=== PATIENT | male | born 1995 | race Caucasian/White ===

== ENCOUNTER 2025-01-14 02:54 | Observation (INO) | payer SELFPAY ==
[2025-01-14] VITALS (29 sets, daily range): BP systolic 111–153; BP diastolic 52–93; PULSE 55–107; RESP 12–22; TEMP 36.6–36.9; O2SAT 96–100; BMI 20.6
--- NOTE | 2025-01-14 02:59 | ECG_ITS ---
Test Date: 2025-01-14 02:56:00 Measurements Intervals [place] Rate: 96 P: 71 [place]: 113 QRS: -10 QRSD: 117 T: 55 QT: 277 QTc: 352 Interpretive Statements SINUS RHYTHM WITH SHORT [place] INTERVAL POSSIBLE LEFT ATRIAL ENLARGEMENT INCOMPLETE RIGHT BUNDLE BRANCH BLOCK BORDERLINE ECG No previous ECG available for comparison Electronically Signed On 01-14-2025 06:14:56 CDT by Swapnil Flowers D.O.
--- OUTSIDE RECORDS SUMMARY | 2025-01-14 03:16 | XMS_ITS | Clinical Summary ---
Author Organization [facility] Address [address] [place] [id number] Care Team Providers Care Picker/Puller Name Role Phone Unavailable Primary Care Provider Unavailabl e Social History Tobacco Use Types Packs/Day Years Used Date Smoking Tobacco: Never Assessed Sex and Gender Information Value Date Recorded Sex Assigned at Not on file Legal Sex Male 4:47 PM CDT Gender Identity Not on file Sexual Orientation Not on file Plan of Treatment Health Maintenance Due Date Last Done Comments Annual Physical 1997 Hepatitis C 2012 DTaP, Tdap and Td Vaccines ( 1 - Tdap) 2013 Hepatitis B Vaccines (1 of 3 - 19+ 3-dose series) 2013 HPV Vaccines (1 - 3-dose SCD M series) 2021 COVID-19 Vaccine ( - 2023-2 5 season) 2024 Influenza Adult (#1) 2025 Meningococcal B Vaccine Aged Out No l onger eligible based on patient's age to complete this topic Meningococcal Vaccine Aged Out No jackson nadya eligible based on patient's age to complete this topic Pneumococcal Vaccine: Pediat rics (0 to 5 Years) and At-Risk Patients (6 to 49 Years) Aged Out No longer eligible b ased on patient's age to complete this topic RSV Immunizations Under 20 Months Aged Out No longer eligible based on patient's age to complete this topic
--- OUTSIDE RECORDS SUMMARY | 2025-01-14 03:16 | XMS_ITS | Clinical Summary ---
Author Organization [facility] [address] [place] [id number] Care Team Providers Care Drum Saw Operator Name Role Phone Art Rothman Primary Care Provider Allergies Active Allergy Reactions Criticality Noted Date Comments Butorphanol Tartrate Other (See comments),Unknown Low 02/09/2012 REVERSE REACTION- DOES NOT KNOCK HIM OUT Medications No known medications Active Problems Problem Noted Date Diagnosed Date COVID-19 03/27/2020 Essential hypertension 03/29/2019 Nonintractable episodic headache 03/29/2019 Coarctation of aorta 03/30/2018 Assessment & Plan (03/30/2018 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 He continues to do well and is asymptomatic with a fairly high level of physical activity. He is normotensive today without any medications, though reports systolic blood pressures in the 140's on the left and 140-160's on the right. In this context we will get baseline labs and start lisinopril 2.5 mg daily with plan for patient to keep BP log and follow up over the phone for further titration. He does not require SBE prophylaxis for dental work. There are no restrictions to his activities. We will perform an MRA chest with his return visit in one year, which was ordered today. 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 History of bicuspid aortic v alve - (Added by ELO Conv) Family History Medical History Relation Name Comments Hypertension Father Family history of hypertension - (Added by ELO Conv) Hypertension Mother Family history of hypertension - (Added by ELO Conv) Relation Name Status Comments Father Mother Social History Tobacco Use Types Packs/Day Years Used Date Smoking Tobacco: Never Smokeless Tobacco: Current Sex and Gender Information Value Date Recorded Sex Assigned at Not on file Legal Sex Male 11:44 PM SALESFORCE ADMINISTRATOR Gender Identity Not on file Sexual Orientation Not on file Obstetrics History Last Filed Vital Signs Vital Sign Reading Time Taken Comments Blood Pressure 120/78 2023 9:32 AM CDT Pulse 75 2023 9:32 AM CDT Temperature 37.1 C (98.7 F) 03/27/2020 10:18 AM SALESFORCE ADMINISTRATOR Respiratory Rate - - Oxygen Saturation 99% 2023 9:32 AM CDT Inhaled Oxygen Concentration - - Weight 65.4 kg (144 lb 1.9 oz) 2023 9:32 A M CDT Height 175.3 cm (5' 9) 2023 9:32 AM CDT Body Mass Index 21.28 2023 9:32 AM CDT Plan of Treatment Health Maintenance Due Date Last Done Comments Depression Screening 1994 Hepatitis C Screening 1994 DTaP/Tdap/Td Vaccine (2 - Tdap) 2005 10/26/2004 Varicella Vaccines (1 of 2 - 13+ 2-dose series) 11/18/2007 Regular Well Visit/Exam 18-64 2012 HPV Vaccines (1 - 3-dose SCD M series) 2021 Influenza Vaccine (#1) 2024 9, 02/20/2018 Hepatitis B Screening Completed 08/23/1995 , 1994, 1994 Pneumococcal vaccine <65 Aged Out No longer eligible based on patient's age to complete this topic Medical Devices Implanted Type Area Bindery Machine Feeder Offbearer Device Identifier Shelf Expiration Date Model / Serial / Lot Cardiac Stent Heart Insurance ANTHEM ACCESS ANTHEM ACCESS CHOICE BLUE ACCESS OOS Advance Directives For more information, please contact: [phone] Documents on File Type Date Recorded Patient Health Evaluator Expl anation ADVANCE DIRECTIVE 03/30/2018 11:36 AM Adv ance Directive Checklist Care Teams Drum Saw Operator Relationship Specialty Start Date End Date Art Rothman PA [address] [facility] [address] [address] PCP - General 04/07/17
[2025-01-14 03:17] LABS: Hematocrit 45.4 % (42.0-52.0); Hemoglobin 15.4 g/dL (14.0-18.0); Immature Granulocyte Percent A 0.4 % (0-0.5); Lymphocytes Absolute Auto 1.61 K/mm3 (0.9-3.2); Mean Corpuscular HGB Conc 33.9 g/dl (32-36); Mean Corpuscular Hemoglobin 30.0 pg (26-34); Mean Corpuscular Volume 88.3 fl (80-100); Nucleated Red Blood Cells Absolute Auto 0.000 K/mm3 (0.0-0.012); Nucleated Red Blood Cells Perc 0.0 % (0.0-0.2); Platelet Count Result 222 k/mm3 (150-375); Red Blood Count 5.14 M/mm3 (4.6-6.20); White Blood Count 8.5 K/mm3 (4.5-10.0)
[2025-01-14 03:29] LABS: Acetaminophen 136 ug/mL (10-30); Salicylate < 1.0 mg/dL (2-20)
[2025-01-14 03:31] LABS: Alanine Aminotransferase 16 U/L (6-50); Albumin Level 5.1 g/dL (3.5-5.1); Alkaline Phosphatase 61 U/L (38-126); Anion Gap 14 mmol/L (4-12); Aspartate Amino Transferase 28 U/L (17-59); Bilirubin,Total 0.6 mg/dL (0.2-1.3); Blood Urea Nitrogen 14 mg/dL (9-20); Calcium 9.0 mg/dL (8.4-10.2); Carbon Dioxide 24 mmol/L (22-30); Chloride 103 mmol/L (98-107); Estimated CRCL calculation 84 ml/min; Estimated Glomerular Filt Rate > 60; Glucose 93 mg/dL (65-110); Potassium 3.6 mmol/L (3.4-5.0); Sodium 141 mmol/L (137-145); Total Protein 8.9 g/dL (6.3-8.2)
--- NOTE | 2025-01-14 03:31 | ED.GENADULT ---
HPI - General Adult General Chief complaint: Overdose Stated complaint: SI/OD/+ETOH/AMS Time Seen by Provider: 01/14/25 02:59 History of Present Illness HPI narrative: Patient is a 29-year-old gentleman who presents emergency department with chief complaint of suicidal ideation and overdose. Per EMS the patient was in a vehicle and reported that he took 30 Tylenol pills and also had a firearm with him the patient reported that he was having suicidal thoughts patient also reports that he took THC gummies at the same time Related Data Allergies Allergy/AdvReac Type Severity Reaction Status Date / Time midazolam Allergy Mild Verified 06/24/18 17:15 butorphanol Allergy Unknown Verified 12/04/13 10:55 Review of Systems Review of Systems: A 10 system review of systems was completed on the patient and is negative except for what is stated in the HPI. Nursing and ancillary documentation was reviewed. [facility] Family History Family History Father Family history of malignant neoplasm Mother Family history of malignant neoplasm Sibling Family history of malignant neoplasm Social History Social History Smoking status: Never smoker Second hand tobacco smoke exposure: Yes Alcohol intake: current Exam Narrative: GENERAL: Well-appearing, well-nourished, and in no acute distress. HEAD: Normocephalic, atraumatic. EYES: PERRLA and EOMI. ENT: Nares clear, no rhinorrhea or epistaxis. Mucous membranes moist. NECK: Supple. CHEST: Clear to auscultation. No respiratory distress. HEART: Regular rate and rhythm. No murmur heard. Normal peripheral pulses. ABDOMEN: Soft, nontender, nondistended, normal active bowel sounds. EXTREMITIES: Normal range of motion. No edema. SKIN: Warm, dry, no rash. NEURO: No focal deficits. Alert and oriented x3. PSYCH: Depressed mood and affect. Course Vital Signs Vital signs: Vital Signs Temperature 36.9 C 01/14/25 02:47 Pulse Rate 107 H 01/14/25 02:47 Respiratory Rate 20 01/14/25 02:47 Blood Pressure 153/78 H 01/14/25 02:47 Pulse Oximetry 99 01/14/25 02:47 Oxygen Delivery Room Air 01/14/25 02:47 Temperature 36.9 C 01/14/25 02:47 Pulse Rate 91 01/14/25 05:30 Respiratory Rate 19 01/14/25 05:30 Blood Pressure 134/78 01/14/25 05:30 Pulse Oximetry 97 01/14/25 05:30 Oxygen Delivery Room Air 01/14/25 03:06 Medical Decision Making MDM Narrative Medical decision making narrative: Differential diagnosis includes polysubstance overdose, nontoxic overdose, suicidal ideation The patient's initial acetaminophen was 136 repeat was 152 patient is positive for amphetamines ETOH was 111 repeat has come down to 73 patient is negative for COVID flu RSV Vital Signs Vital Signs: Vital Signs Temperature 36.9 C 01/14/25 02:47 Pulse Rate 107 H 01/14/25 02:47 Respiratory Rate 20 01/14/25 02:47 Blood Pressure 153/78 H 01/14/25 02:47 Pulse Oximetry 99 01/14/25 02:47 Oxygen Delivery Room Air 01/14/25 02:47 Temperature 36.9 C 01/14/25 02:47 Pulse Rate 91 01/14/25 05:30 Respiratory Rate 19 01/14/25 05:30 Blood Pressure 134/78 01/14/25 05:30 Pulse Oximetry 97 01/14/25 05:30 Oxygen Delivery Room Air 01/14/25 03:06 Lab Data 01/14/25 03:10 01/14/25 03:10 Labs: Lab Results 01/14/25 01/14/25 01/14/25 Range/Units 03:10 04:16 05:30 WBC 8.5 (4.5-10.0) K/mm3 RBC 5.14 (4.6-6.20) M/mm3 Hgb 15.4 (14.0-18.0) g/dL Hct 45.4 (42.0-52.0) % MCV 88.3 (80-100) fl MCH 30.0 (26-34) pg MCHC 33.9 (32-36) g/dl RDW 13.2 (11.5-14.5) % Plt Count 222 (150-375) k/mm3 MPV 10.6 H (7.4-10.4) fl Immature Gran % (Auto) 0.4 (0-0.5) % Neut % (Auto) 73.0 (45.5-73.1) % Lymph % (Auto) 19.0 (18.3-44.2) % [place] % (Auto) 6.7 (2.6-8.5) % Eos % (Auto) 0.2 (0-4.4) % Baso % (Auto) 0.7 (0.2-1.2) % Lymph # (Auto) 1.61 (0.9-3.2) K/mm3 [place] # (Auto) 0.6 (0.1-0.6) K/mm3 Eos # (Auto) 0.0 (0-0.3) K/mm3 Baso # (Auto) 0.1 (0.0-0.1) K/mm3 Abs Immat Gran (auto) 0.03 (0.00-0.031) K/mm3 Absolute Neuts (auto) 6.2 (1.3-6.7) K/mm3 Absolute Nucleated RBC 0.000 (0.0-0.012) K/mm3 Nucleated RBC % 0.0 (0.0-0.2) % PT 13.8 (11.1-14.7) Seconds INR 1.0 Sodium 141 (137-145) mmol/L Potassium 3.6 (3.4-5.0) mmol/L Chloride 103 (98-107) mmol/L Carbon Dioxide 24 (22-30) mmol/L Anion Gap 14 H (4-12) mmol/L BUN 14 (9-20) mg/dL Creatinine 1.07 (0.7-1.3) mg/dL Estim Creat Clear Calc 84 ml/min Estimated GFR > 60 (59 - ) Glucose 93 (65-110) mg/dL Calcium 9.0 (8.4-10.2) mg/dL Total Bilirubin 0.6 0.6 (0.2-1.3) mg/dL Direct Bilirubin 0.0 (0-0.3) mg/dL AST 28 31 (17-59) U/L ALT 16 17 (6-50) U/L Alkaline Phosphatase 61 59 (38-126) U/L Total Protein 8.9 H 8.4 H (6.3-8.2) g/dL Albumin 5.1 4.9 (3.5-5.1) g/dL TSH 5.080 H (0.465-4.680) uIU/mL Urine Color Yellow (Yellow) Urine Appearance Cloudy H (Clear) Urine pH 5.0 (5.0-9.0) Ur Specific [place] 1.025 (1.001-1.035) Urine Protein Trace (Negative) mg/dL Urine Glucose (UA) Negative (Negative) mg/dL Urine Ketones Trace H (Negative) mg/dL Ur Blood (Man) Non-hemolyzed trace (Negative) Urine Nitrate Negative (Negative) Urine Bilirubin Negative (Negative) Urine Urobilinogen 0.2 (<2.0) mg/dL Add Ur Microanalysis Reviewed Leukocyte Esterase Rfl Negative (Negative) ROBERTO/UL Urine RBC 3-5 H (0-2) /hpf Urine WBC 6-10 H (0-3) /hpf Ur Squamous Epith Cells None seen (Few) /hpf Urine Bacteria None seen /hpf Urine Casts 3-5 Salicylates < 1.0 L (2-20) mg/dL Urine Opiates Screen Negative (Negative) Urine Methadone Screen Negative (Negative) Acetaminophen 136 H 152 H* (10-30) ug/mL Ur Barbiturates Screen Negative (Negative) Ur Phencyclidine Scrn Negative (Negative) Ur Amphetamine Screen Positive A (Negative) U Benzodiazepines Scrn Negative (Negative) Urine Cocaine Screen Negative (Negative) U Cannabinoids Screen Negative (Negative) Ethyl Alcohol 111 73 (<10) mg/dL Influenza A (RT-PCR) Negative (Negative) Influenza B (RT-PCR) Negative (Negative) RSV (RT-PCR) Negative (Negative) SARS-CoV-2 RNA (RT-PCR) Negative (Negative) Critical Care Time Critical Care Time Critical Care Time: Yes Total Critical Care Time: 35 Discharge Plan Discharge Clinical Impression: Polysubstance overdose, Acetaminophen overdose, Suicidal ideation Patient Disposition: Still a Patient Condition: Stable Patient Language: Armenian Follow-up/Referrals: PHYSICIAN,ENVIRONMENTAL PROJECTS ADVISOR [Primary Care Provider, Internal Medicine]
[2025-01-14 03:54] LABS: Influenza A QL RT-PCR Negative (Negative); Influenza B QL RT-PCR Negative (Negative); RSV RNA, RT-PCR Negative (Negative); SARS-CoV-2 RNA PCR Negative (Negative)
[2025-01-14 04:07] LABS: Thyroid Stimulating Hormone 5.080 uIU/mL (0.465-4.680)
[2025-01-14 04:34] LABS: Add Urine Microscopic? YES; Appearance Urine Cloudy (Clear); Glucose Urine UA Negative (Negative); Leukocyte Esterase Ur Negative LEU/UL (Negative); Need Manual Microscopic Reviewed; Nitrate Urine Negative (Negative); Specific Grav Ur 1.025 (1.001-1.035)
[2025-01-14 04:45] LABS: Cannabinoid Screen Urine Negative (Negative)
[2025-01-14] MEDS: ONDANSETRON INJ 4 MG/2 ML VIAL IV PUSH ×2 (05:33→09:17)
[2025-01-14 05:52] LABS: Alanine Aminotransferase 17 U/L (6-50); Albumin Level 4.9 g/dL (3.5-5.1); Alkaline Phosphatase 59 U/L (38-126); Aspartate Amino Transferase 31 U/L (17-59); Bilirubin,Total 0.6 mg/dL (0.2-1.3); Total Protein 8.4 g/dL (6.3-8.2)
[2025-01-14 05:58] LABS: INR 1.0; Prothrombin Time 13.8 Seconds (11.1-14.7)
[2025-01-14 06:05] LABS: Acetaminophen 152 ug/mL (10-30)
--- NOTE | 2025-01-14 06:12 | PC.NURSE ---
Poison Control notified for Acetaminophen Level of 152. Advised to start Acetadote and repeat PT/INR, LFT's, and Acetaminophen level 2 hours after the last dose is given.
[2025-01-14] MEDS: ACETYLCYSTEINE IV 10,200 MG in DEXTROSE 5% IN WATER 200 ML 200 MG IVPB (06:38)
--- NOTE | 2025-01-14 07:12 | P.HP_ITS ---
H&P: HPI History of Present Illness Date/Time: 01/14/25 07:12 Chief Complaint: Tylenol toxicity Narrative: Patient is a 29 a year old male with past medical history of coarctation of aorta diagnosed at the age of 11 which is managed by stent placement and revision of stent at the age of 15 presented to the emergency department with a chief complaint of suicidal ideation and overdose. As per EMS documentation patient was in a vehicle and reported a he to with 30 Tylenol pain and also had a firearm with them and had suicidal thoughts. Patient also reports a are taking THC gummies at the same time. During the evaluation patient reports that currently he has not really having any suicidal ideation or homicidal ideation. Patient acknowledges he had a fight with his girlfriend yesterday and decided he does not want to live anymore but he regrets his decision. Patient drinks alcohol occasionally. Denies any drug abuse. Patient do not have any previous suicidal ideation or attempts. Review of Systems Review of Systems: A 10 system review of systems was completed on the patient and is negative except for what is stated in the HPI. Nursing and ancillary documentation was reviewed. [facility] Family History Family History Father Family history of malignant neoplasm Mother Family history of malignant neoplasm Sibling Family history of malignant neoplasm Social History Social History Smoking status: Never smoker Second hand tobacco smoke exposure: Yes Alcohol intake: current Drinks per week: 5 Substance use type: does not use Other substance usage details: stated does not use Lack of Transportation: No Lack of Food: Never True Current Housing: I Have Housing Concerned About Future Housing: No Difficulty Paying Gas/Electric Bills: No Difficulty Paying for Meds: No Currently Unemployed: No Education: High School Diploma/GED Difficulty w/ Childcare or Family Care: No Spiritual care concerns: No Meds Home Medications and Allergies Home Medications ?Medication ?Instructions ?Recorded ?Confirmed ?Type No Home Medications 01/14/25 01/14/25 H istory Allergies Allergy/AdvReac Type Severity Reaction Status Date / Time midazolam Allergy Mild Verified 06/24/18 17:15 butorphanol Allergy Unknown Verified 12/04/13 10:55 Vital Signs Vital Signs - 24 hr 01/14/25 02:47 01/14/25 03:00 01/14/25 03:06 Temperature 98.4 F Pulse Rate 107 H 88 Respiratory Rate 20 20 Blood Pressure 153/78 H 137/66 Pulse Oximetry 99 100 Oxygen Delivery Room Air Room Air 01/14/25 03:30 01/14/25 04:00 01/14/25 04:30 Temperature Pulse Rate 98 83 97 Respiratory Rate 22 H 20 20 Blood Pressure 150/79 H 124/73 126/57 L Pulse Oximetry 99 99 99 Oxygen Delivery 01/14/25 05:00 01/14/25 05:30 Temperature Pulse Rate 84 91 Respiratory Rate 19 19 Blood Pressure 112/52 L 134/78 Pulse Oximetry 97 97 Oxygen Delivery Exam Narrative: GENERAL: Well-appearing, well-nourished, and in no acute distress. HEAD: Normocephalic, atraumatic. EYES: PERRLA and EOMI. ENT: Nares clear, no rhinorrhea or epistaxis. Mucous membranes moist. NECK: Supple. CHEST: Clear to auscultation. No respiratory distress. HEART: Regular rate and rhythm. No murmur heard. Normal peripheral pulses. ABDOMEN: Soft, nontender, nondistended, normal active bowel sounds. EXTREMITIES: Normal range of motion. No edema. SKIN: Warm, dry, no rash. NEURO: No focal deficits. Alert and oriented x3. PSYCH: Depressed mood and affect. H&P: Results Labs Labs: Short CBC 01/14/25 Range/Units 03:10 WBC 8.5 (4.5-10.0) K/mm3 Hgb 15.4 (14.0-18.0) g/dL Hct 45.4 (42.0-52.0) % Plt Count 222 (150-375) k/mm3 [facility] 01/14/25 03:10 Sodium 141 Potassium 3.6 Chloride 103 Carbon Dioxide 24 BUN 14 Creatinine 1.07 Glucose 93 Calcium 9.0 Liver Function 01/14/25 01/14/25 Range/Units 03:10 05:30 Total Bilirubin 0.6 0.6 (0.2-1.3) mg/dL Direct Bilirubin 0.0 (0-0.3) mg/dL AST 28 31 (17-59) U/L ALT 16 17 (6-50) U/L Alkaline Phosphatase 61 59 (38-126) U/L Albumin 5.1 4.9 (3.5-5.1) g/dL Urine 01/14/25 Range/Units 04:16 Urine Color Yellow (Yellow) Urine Appearance Cloudy H (Clear) Urine pH 5.0 (5.0-9.0) Ur Specific [place] 1.025 (1.001-1.035) Urine Protein Trace (Negative) mg/dL Urine Glucose (UA) Negative (Negative) mg/dL Assessment and Plan Assessment and plan (1) Suicidal ideation: Code(s): R45.851 - Suicidal ideations Status: Acute (2) Alcohol use: Code(s): F10.90 - Alcohol use, unspecified, uncomplicated Status: Acute (3) Polysubstance overdose: Code(s): T50.901A - Poisoning by unspecified drugs, medicaments and biological substances, accidental (unintentional), initial encounter Status: Acute (4) Acetaminophen overdose: Code(s): T39.1X1A - Poisoning by 4-Aminophenol derivatives, accidental (unintentional), initial encounter Status: Acute Plan Acetaminophen toxicity CBC, CMP, PT/INR, serum acetaminophen level 152 Patient was started on acetylcysteine in ED Check EKG, tele monitoring AST 31, ALT 17, alkaline phosphatase 59, PT 13.8, INR 1 Poison control is recommended checking LFTs and Tylenol level stools prior to the end of the 3rd bag off NAC NEC 21 hour intravenous protocol Follow criteria for stopping NAC infusion if possible:which includes serum acetaminophen level less than 10 mcg/ml, AST/ALT normal or improved (50% drop from peak level), INR less than 2, patient clinically improved with no nausea vomiting or abdominal pain. Monitor for adverse reaction Suicidal ideation One on 1 sitter Crisis consult after medically cleared Alcohol toxicity/polysubstance overdose UDS positive for amphetamine -continue to monitor blood pressures, heart rate -monitor for withdrawal -continues [facility] Hospitalist [facility] Advance Care Plan I have confirmed that the patient's Advanced Care Plan is present, code status is documented, or surrogate decision maker is listed in patient medical record.: Yes Medication Reconciliation I have utilized all available resources to obtain, update and review the patients current medications (includes all prescriptions, OTC, herbals, cannabis, and nutritional supplements).: Yes
--- NOTE | 2025-01-14 07:30 | PC.NURSE ---
This patient, Wai Navarro, was admitted to Intensive Care Unit-4. Patient/family oriented to hospital policies and general routines including ID bracelet, bed and alarms, visiting hours, pain management, procedures, bathroom and other care routines, personal items, smoking policy, room service/diet, and visiting hours. Information on how to activate the Rapid Response Team has been discussed. Patient/Family are encouraged to report perceived risks to care and to ask questions if they do not understand what they are told or what they should do.
[2025-01-14] MEDS: ACETYLCYSTEINE IV 3,400 MG in DEXTROSE 5% IN WATER 500 ML 129.25 MG IVPB (08:00)
[2025-01-14] MEDS: SODIUM CHLORIDE 0.9% IV 1,000 ML 999 ML IV CONT (08:02)
[2025-01-14] MEDS: SODIUM CHLORIDE 0.9% IV 1,000 ML 125 ML IV CONT ×2 (08:07→17:54)
[2025-01-14] MEDS: LACTATED RINGERS 1,000 ML 999 ML IV CONT (09:17)
[2025-01-14 09:30] LABS: MRSA (PCR) NOT DETECTED (NOT DETECTE)
--- NOTE | 2025-01-14 09:54 | P.CONIN_ITS ---
Assessment and Plan Assessment and plan (1) Acetaminophen overdose: Code(s): T39.1X1A - Poisoning by 4-Aminophenol derivatives, accidental (unintentional), initial encounter Status: Acute Assessment and Plan: 01/14/2025: Patient presented the ED a few taking 30 pills of Tylenol, -Urine drug screen was positive for amphetamine. Tylenol levels 136 increased to 152. -Poison control was notified and recommended starting N- acetylcystine -LFTs and creatinine within normal limit -but in control is recommended checking LFTs and Tylenol level stools prior to the end of the 3rd bag off NAC -patient also received 2 L IV fluid bolus in the ICU, continue maintenance IV fluids (2) Suicidal ideation: Code(s): R45.851 - Suicidal ideations Status: Acute Assessment and Plan: Patient was found with a firearm also in the car and suicidal thoughts which she did convey to the EMS. He also had taking THC gummies at the same time -will continue suicide precaution -bedside sitter - (3) Polysubstance overdose: Code(s): T50.901A - Poisoning by unspecified drugs, medicaments and biological substances, accidental (unintentional), initial encounter Status: Acute Assessment and Plan: Urine tox screen was positive for amphetamine -continue to monitor blood pressures, heart rate -monitor for withdrawal (4) Alcohol use: Code(s): F10.90 - Alcohol use, unspecified, uncomplicated Status: Acute Assessment and Plan: Alcohol level is a 111 and repeat was 73 Started on CIWA protocol -monitor for alcohol withdrawal Plan DVT prophylaxis: Lovenox Stress ulcer prophylaxis: Not indicate Nutrition: Regular diet with safety trach Code Status: Full code Critical Care Time Spent: 45 minute Discussed with patient and mother at bedside updated them with patient's condition plan of care. They are aware that patient is on the antidote for Tylenol overdose, will be monitoring LFTs and Tylenol levels according to poison Control recommendations Due to a high probability of clinically significant, life threatening deterioration, the patient required my highest level of preparedness to intervene emergently and I personally spent this critical care time directly and personally managing the patient. This critical care time included obtaining a history; examining the patient; pulse oximetry; ordering and review of studies; arranging urgent treatment with development of a management plan; evaluation of patient's response to treatment; frequent reassessment; and discussions with other providers. It was exclusive of separately billable procedures and treating other patients and teaching time. Please see Assessment and Plan section and the rest of the note for further information on patient assessment and treatment This dictation may have been done utilizing a voice recognition system. Attempts have been made to correct errors. However, there may be uncorrected grammatical, spelling, and recognitions errors present. Conservation Officer Consult Note Consult date: 01/14/25 Reason for consult: Tylenol overdose, suicidal behavior HPI: Wai Navarro is a 29 year old male with past medical history of coarctation of aorta status post stent when he was young, along with revision as he grew older according to the mother. Patient presented the ED on 01/14/2025 after he was found in of a call and reportedly took 30 pills off Tylenol, also had a firearm with him and reported that he was was having suicidal thoughts. Patient also reported that he took THC gummies at the same time. In the ER patient was hemodynamically stable, with good O2 sats on room air. CBC and BMP were within normal limits. LFTs were normal, TSH 5.080 which is elevated. INR, creatinine of 1.07 Urine drug screen was positive for amphetamine. Tylenol levels 136 increased to 152. Alcohol level is a 111 and repeat was 73 Poison control was notified and recommended starting N- acetylcystine Patient seen and examined upon arrival to the ICU, is awake but somnolent, answers to questions appropriately and then falls asleep. Mother at bedside, patient only has a history of coarctation of aorta status post stenting as mentioned above. Patient not willing to answer many questions at this time regarding what he took and why. Patient is currently hemodynamically stable. 1st bagged of IV fluid bolus is being infused at this time. Patient denies any chest pain, shortness with abdominal pain, nausea vomiting at this time. States he is just tired and sleepy Review of Systems 2 Review of Systems: All systems reviewed & are unremarkable except as noted in HPI and below PMFSH Family History Family History Father Family history of malignant neoplasm Mother Family history of malignant neoplasm Sibling Family history of malignant neoplasm Social History Social History Smoking status: Never smoker Second hand tobacco smoke exposure: Yes Alcohol intake: current Drinks per week: 5 Substance use type: does not use Other substance usage details: stated does not use Lack of Transportation: No Lack of Food: Never True Current Housing: I Have Housing Concerned About Future Housing: No Difficulty Paying Gas/Electric Bills: No Difficulty Paying for Meds: No Currently Unemployed: No Education: High School Diploma/GED Difficulty w/ Childcare or Family Care: No Spiritual care concerns: No Meds Home Medications and Allergies Home Medications ?Medication ?Instructions ?Recorded ?Confirmed ?Type No Home Medications 01/14/25 01/14/25 H istory Allergies Allergy/AdvReac Type Severity Reaction Status Date / Time midazolam Allergy Mild Verified 06/24/18 17:15 butorphanol Allergy Unknown Verified 12/04/13 10:55 Vital Signs Vital Signs - 24 hr 01/14/25 02:47 01/14/25 03:00 01/14/25 03:06 Temperature 98.4 F Pulse Rate 107 H 88 Respiratory Rate 20 20 Blood Pressure 153/78 H 137/66 Pulse Oximetry 99 100 Oxygen Delivery Room Air Room Air 01/14/25 03:30 01/14/25 04:00 01/14/25 04:30 Temperature Pulse Rate 98 83 97 Respiratory Rate 22 H 20 20 Blood Pressure 150/79 H 124/73 126/57 L Pulse Oximetry 99 99 99 Oxygen Delivery 01/14/25 05:00 01/14/25 05:30 01/14/25 06:00 Temperature Pulse Rate 84 91 83 Respiratory Rate 19 19 17 Blood Pressure 112/52 L 134/78 129/67 Pulse Oximetry 97 97 97 Oxygen Delivery 01/14/25 06:30 01/14/25 07:00 Temperature Pulse Rate 81 85 Respiratory Rate 18 17 Blood Pressure 111/93 H 127/71 Pulse Oximetry 96 97 Oxygen Delivery Exam 2 Narrative: General: Young healthy-looking individual currently in no acute distress except for somnolent HEENT:? Pupils equal and reactive, sclera is clear Neck:? Supple Respiratory:? Clear to auscultation bilateral, no wheeze Cardiac:? S1-S2 normal, regular rate and Abdomen:? Soft, nontender, nondistended, normoactive bowel sound Extremities:? No edema, palpable pedal pulse Neuro:? Patient is somnolent/sleepy, states he is tired but easily arousable to name, answers to questions and follows simple commands in all extremities Skin:? Warm and dry Psych:? Flat affect Results Labs 01/14/25 03:10 01/14/25 03:10 Labs: Short CBC 01/14/25 Range/Units 03:10 WBC 8.5 (4.5-10.0) K/mm3 Hgb 15.4 (14.0-18.0) g/dL Hct 45.4 (42.0-52.0) % Plt Count 222 (150-375) k/mm3 BMP 01/14/25 03:10 Sodium 141 Potassium 3.6 Chloride 103 Carbon Dioxide 24 BUN 14 Creatinine 1.07 Glucose 93 Calcium 9.0 Liver Function 01/14/25 01/14/25 Range/Units 03:10 05:30 Total Bilirubin 0.6 0.6 (0.2-1.3) mg/dL Direct Bilirubin 0.0 (0-0.3) mg/dL AST 28 31 (17-59) U/L ALT 16 17 (6-50) U/L Alkaline Phosphatase 61 59 (38-126) U/L Albumin 5.1 4.9 (3.5-5.1) g/dL Urine 01/14/25 Range/Units 04:16 Urine Color Yellow (Yellow) Urine Appearance Cloudy H (Clear) Urine pH 5.0 (5.0-9.0) Ur Specific [place] 1.025 (1.001-1.035) Urine Protein Trace (Negative) mg/dL Urine Glucose (UA) Negative (Negative) mg/dL
[2025-01-14] MEDS: THIAMINE HCL 200 MG/2 ML VIAL 100 MG IV PUSH (12:19)
[2025-01-14] MEDS: FOLIC ACID 1 MG/0.2 ML INJ IV PUSH (12:20)
[2025-01-14] MEDS: DEXTROSE 5% IVPB (12:20)
[2025-01-14] MEDS: ACETYLCYSTEINE IVPB (12:20)
[2025-01-15] VITALS (12 sets, daily range): BP systolic 127–140; BP diastolic 64–88; PULSE 52–74; RESP 11–16; TEMP 36.5–36.8; O2SAT 97–99
[2025-01-15] MEDS: SODIUM CHLORIDE 0.9% IV 1,000 ML 125 ML IV CONT (01:58)
[2025-01-15 02:30] LABS: Hematocrit 40.1 % (42.0-52.0); Hemoglobin 13.1 g/dL (14.0-18.0); Immature Granulocyte Percent A 0.3 % (0-0.5); Lymphocytes Absolute Auto 1.81 K/mm3 (0.9-3.2); Mean Corpuscular HGB Conc 32.7 g/dl (32-36); Mean Corpuscular Hemoglobin 29.5 pg (26-34); Mean Corpuscular Volume 90.3 fl (80-100); Nucleated Red Blood Cells Absolute Auto 0.000 K/mm3 (0.0-0.012); Nucleated Red Blood Cells Perc 0.0 % (0.0-0.2); Platelet Count Result 159 k/mm3 (150-375); Red Blood Count 4.44 M/mm3 (4.6-6.20); White Blood Count 7.6 K/mm3 (4.5-10.0)
[2025-01-15 02:40] LABS: Acetaminophen < 10 ug/mL (10-30)
[2025-01-15 02:42] LABS: Alanine Aminotransferase 11 U/L (6-50); Albumin Level 3.6 g/dL (3.5-5.1); Alkaline Phosphatase 42 U/L (38-126); Anion Gap 5 mmol/L (4-12); Aspartate Amino Transferase 20 U/L (17-59); Bilirubin,Total 0.9 mg/dL (0.2-1.3); Blood Urea Nitrogen 7 mg/dL (9-20); Calcium 8.5 mg/dL (8.4-10.2); Carbon Dioxide 24 mmol/L (22-30); Chloride 108 mmol/L (98-107); Estimated CRCL calculation 81 ml/min; Estimated Glomerular Filt Rate > 60; Glucose 99 mg/dL (65-110); Magnesium 2.0 mg/dL (1.6-2.3); Potassium 3.8 mmol/L (3.4-5.0); Sodium 137 mmol/L (137-145); Total Protein 6.2 g/dL (6.3-8.2)
[2025-01-15 02:45] LABS: INR 1.2; Prothrombin Time 15.2 Seconds (11.1-14.7)
[2025-01-15 02:46] LABS: Partial Thromboplastin Time 30.4 Seconds (22.3-36.8)
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
[2025-01-15] MEDS: ENOXAPARIN 40 MG/0.4 ML SYRINGE SUB-Q (08:10)
[2025-01-15] MEDS: FOLIC ACID 1 MG/0.2 ML INJ IV PUSH (08:10)
[2025-01-15] MEDS: THIAMINE HCL 200 MG/2 ML VIAL 100 MG IV PUSH (08:10)
--- NOTE | 2025-01-23 11:13 | PM.TDS ---
Transfer Discharge Sum: Prov Provider Date of admission: 01/14/25 06:16 Primary care physician: [facility] [employer] TECHNOLOGIST PHYSICIAN Admitting clinician: aSvi Oliveira MD Consults: 01/14/25 Care Coordination Consult Routine Reason for Consult:: Crisis Intervention Abuse 01/14/25 06:17 Consult to Physician Routine Comment: Consulting Provider: Agustin Gee Reason for consultation: Acetaminophen overdose, suicidal ideation Has provider been notified: Yes 01/14/25 10:12 Care Coordination Consult Routine Reason for Consult:: Acute Rehab Consult Attending physician on discharge: Savi Oliveira Discharging clinician: Сергей Dangelo Anticipated date of transfer: 01/15/25 Receiving physician/facility: [facility] DS: Admitting Diagnosis Discharge Date 01/15/25 Admitting Diagnosis Tylenol overdose, suicidal behavior DS: Discharge Diagnosis Discharge Diagnosis (1) Acetaminophen overdose: Code(s): T39.1X1A - Poisoning by 4-Aminophenol derivatives, accidental (unintentional), initial encounter Status: Acute Assessment and Plan: 01/14/2025: Patient presented the ED a few taking 30 pills of Tylenol, -Urine drug screen was positive for amphetamine. Tylenol levels 136 increased to 152. -Poison control was notified and recommended starting N- acetylcystine -LFTs and creatinine within normal limit -poison control control is recommended checking LFTs and Tylenol level stools prior to the end of the 3rd bag off NAC -patient also received 2 L IV fluid bolus in the ICU, -will discontinue maintenance IV fluid 01/15: Acetaminophen levels <10. Status post N- acetylcystine, size normal LFTs, INR of 1.2. Poison Control has signed off -patient is medically stable for crisis management and care coordination to evaluate for placement to psych facility as he may require treatment for underlying depression (2) Suicidal ideation: Code(s): R45.851 - Suicidal ideations Status: Acute Assessment and Plan: Patient was found with a firearm also in the car and suicidal thoughts which she did convey to the EMS. He also had taking THC gummies at the same time -will continue suicide precaution -bedside sitter -regular diet with safety tray (3) Polysubstance overdose: Code(s): T50.901A - Poisoning by unspecified drugs, medicaments and biological substances, accidental (unintentional), initial encounter Status: Acute Assessment and Plan: Urine tox screen was positive for amphetamine -continue to monitor blood pressures, heart rate -monitor for withdrawal (4) Alcohol use: Code(s): F10.90 - Alcohol use, unspecified, uncomplicated Status: Acute Assessment and Plan: Alcohol level is a 111 and repeat was 73 Started on CIWA protocol -monitor for alcohol withdrawal Plan DVT prophylaxis: Lovenox Stress ulcer prophylaxis: Not indicated Nutrition: Regular diet with safety trach Code Status: Full code Critical Care Time Spent: 31 minutes Discussed with patient and mother at bedside updated them with patient's condition plan of care. They are aware that patient is on the antidote for Tylenol overdose, will be monitoring LFTs and Tylenol levels according to poison Control recommendations Due to a high probability of clinically significant, life threatening deterioration, the patient required my highest level of preparedness to intervene emergently and I personally spent this critical care time directly and personally managing the patient. This critical care time included obtaining a history; examining the patient; pulse oximetry; ordering and review of studies; arranging urgent treatment with development of a management plan; evaluation of patient's response to treatment; frequent reassessment; and discussions with other providers. It was exclusive of separately billable procedures and treating other patients and teaching time. Please see Assessment and Plan section and the rest of the note for further information on patient assessment and treatment This dictation may have been done utilizing a voice recognition system. Attempts have been made to correct errors. However, there may be uncorrected grammatical, spelling, and recognitions errors present. Transfer Discharge Sum: Med Medications Active and Home Medications: Home Medications No Home Medications 01/14/25 [History Confirmed 01/14/25] Transfer Discharge Sum: Hosp Hospital Course Hospital course: Wai Navarro is a 29 year old male with past medical history of coarctation of aorta status post stent when he was young, along with revision as he grew older according to the mother. Patient presented the ED on 01/14/2025 after he was found in of a call and reportedly took 30 pills off Tylenol, also had a firearm with him and reported that he was was having suicidal thoughts. Patient also reported that he took THC gummies at the same time. In the ER patient was hemodynamically stable, with good O2 sats on room air. CBC and BMP were within normal limits. LFTs were normal, TSH 5.080 which is elevated. INR, creatinine of 1.07 Urine drug screen was positive for amphetamine. Tylenol levels 136 increased to 152. Alcohol level is a 111 and repeat was 73 Poison control was notified and recommended starting N- acetylcystine On 01/15/2025: Patient has Tylenol levels <10. Status post N- acetylcystine, size normal LFTs, INR of 1.2. Poison Control has signed off -patient was medically stable, was assessed by crisis management and care coordination and was thought that he would benefit from a psych facility, Patient was accepted to [facility] and was transferred on 01/15/2025 Patient Condition: Stable Time Spent with Patient Time attestation: Total time spent providing and/or coordinating transfer services: Total time spent: Less than 30 minutes Exam Narrative: General: Young healthy-looking individual currently in no acute distress, pleasant gentleman HEENT:? Pupils equal and reactive, sclera is clear Neck:? Supple Respiratory:? Clear to auscultation bilateral, no wheeze Cardiac:? S1-S2 normal, regular rate and Abdomen:? Soft, nontender, nondistended, normoactive bowel sound Extremities:? No edema, palpable pedal pulse Neuro:? Awake, alert, oriented, answers to questions and follows simple commands in all extremities Skin:? Warm and dry Psych:? Flat affect
== END 2025-01-15 15:46 | disposition short-term general hospital (02) ==
LOC: ANHED 06:08 → ANHICU 07:26
PROVIDERS: Admitting Provider General Practice; Emergency Provider Emergency Medicine; Visit Provider Internal Medicine
DX: R45.851 Suicidal ideations (principal); T39.1X2A Poisoning by 4-Aminophenol derivatives, intentional self-harm, initial encounter; Q25.1 Coarctation of aorta; F10.90 Alcohol use, unspecified, uncomplicated; Y90.5 Blood alcohol level of 100-119 mg/100 ml; F12.90 Cannabis use, unspecified, uncomplicated; Z20.822 Contact with and (suspected) exposure to COVID-19
CPT/HCPCS: 36415; 80053; 80076; 80143; 80179; 80307; 81001; 82077; 83735; 84100; 84443; 85025; 85610; 85730; 87086; 87637; 87641; 93005; 96365; 96366; 96372; 96375; 99285; G0378; J0132; J1650; J2405; J3411; J7030; J7060; J7070; J7120